=== PATIENT | male | born 1945 ===

== ENCOUNTER 2016-11-10 06:40 | Emergency (ER) | payer MEDICAID ==
[2016-11-10 06:44] VITALS: BMI 30.8
[2016-11-10 07:40] VITALS: RESP 16; TEMP 97.8; O2SAT 96
--- NOTE | 2016-11-10 07:42 | ED PDOC ---
Arrival/HPI - General Chief Complaint: Headache Time Seen by Provider: 11/10/16 07:33 Historian: Patient - History of Present Illness Narrative History of Present Illness (Text): 11/10/16 07:37 71 year old male with a past medical history that includes hypertension and diabetes presents to the emergency department complaining of headache with elevated blood pressure last night. 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 Patient states he felt dizzy at home last night so he checked his blood pressure with a machine at home. Patient reports it was 193/96 at home. He reports that the dizziness was not associated with chest pain or shortness of breath. Currently patient states he is still experiencing severe headache. No chest pain, shortness of breath, weakness, abdominal pain, or leg pain. Patient reports he does not have a manager flight and has never had a cardiac workup Time/Duration: 24 hours Symptom Onset: Sudden Symptom Course: Unchanged Modifying Factors (Text): None Associated Symptoms (Text): None Past Medical History - Provider Review Nursing Documentation Reviewed: Yes - Infectious Disease Hx of Infectious Diseases: None - Tetanus Immunization Tetanus Immunization: Unknown - Cardiac Hx Hypertension: Yes - Psychiatric Hx Psychophysiologic Disorder: No Hx Anxiety: No Hx Bipolar Disorder: No Hx Depression: No Hx Emotional Abuse: No Hx Hallucinations: No Hx Panic Disorder: No Hx Post Traumatic Stress Disorder: No Hx Psychosis: No Hx Physical Abuse: No Hx Schizophrenia: No Hx Sexual Abuse: No Hx Substance Use: No - Past Surgical History Past Surgical History: No Previous - Surgical History Other/Comment: prostate and eye surgery - Anesthesia Hx Anesthesia: No Hx Anesthesia Reactions: No Hx Malignant Hyperthermia: No - Suicidal Assessment Feels Threatened In Home Enviroment: No Family/Social History - Physician Review Nursing Documentation Reviewed: Yes Family/Social History: Unknown Family HX Smoking Status: Never Smoked Hx Alcohol Use: No Hx Substance Use: No Hx Substance Use Treatment: No Allergies/Home Meds Allergies/Adverse Reactions: Allergies No Known Allergies Allergy (Verified 12/13/14 14:26) Home Medications: Home Meds Medication Instructions Recorded Confirmed Aspirin [Ecotrin] 81 mg PO DAILY 06/10/16 06/10/16 Losartan/Hydrochlorothiazide 1 tab PO DAILY 06/10/16 06/10/16 [Losartan Potassium-Hydrochlorothiazide 12.5 M] Metformin HCl [Glucophage] 1,000 mg PO AC 06/10/16 06/10/16 Review of Systems - Review of Systems Constitutional: absent: Fatigue, Fevers Eyes: absent: Vision Changes, Photophobia, Eye Pain ENT: absent: Hearing Changes Respiratory: absent: SOB, Cough, Sputum, Wheezing Cardiovascular: absent: Chest Pain, Palpitations, Edema, Calf Pain, LOOMIS, Orthopnea, Syncope Gastrointestinal: absent: Abdominal Pain, Nausea, Vomiting Genitourinary Male: absent: Dysuria Musculoskeletal: absent: Back Pain Skin: absent: Rash Neurological: Headache, Dizziness Endocrine: absent: Diaphoresis Hemo/Lymphatic: absent: Easy Bleeding Psychiatric: absent: Depression Physical Exam Vital Signs Reviewed: Yes Vital Signs Temp Pulse Resp BP Pulse Ox 11/10/16 08:57 67 16 110/70 96 11/10/16 07:40 97.8 F 66 16 114/76 96 11/10/16 06:44 98.4 F 76 18 148/82 99 Temperature: Afebrile Blood Pressure: Normal Pulse: Regular Respiratory Rate: Normal Appearance: Positive for: Well-Appearing, Non-Toxic, Comfortable Pain Distress: None Mental Status: Positive for: Alert and Oriented X 3 - Systems Exam Head: Present: Atraumatic, Normocephalic Pupils: Present: PERRL Extroacular Muscles: Present: EOMI Conjunctiva: Present: Normal Mouth: Present: Moist Mucous Membranes Neck: Present: Normal Range of Motion Respiratory/Chest: Present: Clear to Auscultation, Good Air Exchange. No: Respiratory Distress, Accessory Muscle Use Cardiovascular: Present: Regular Rate and Rhythm, Normal S1, S2. No: Murmurs Abdomen: Present: Normal Bowel Sounds. No: Tenderness, Distention, Peritoneal Signs Back: Present: Normal Inspection Upper Extremity: Present: Normal Inspection. No: Cyanosis, Edema Lower Extremity: Present: Normal Inspection. No: Edema Neurological: Present: GCS=15, CN II-XII Intact, Speech Normal, Motor Func Grossly Intact, Normal Sensory Function, Gait Normal Skin: Present: Warm, Dry, Normal Color. No: Rashes Psychiatric: Present: Alert, Oriented x 3, Normal Insight, Normal Concentration Medical Decision Making ED Course and Treatment: Impression: Patient presenting with complaint of dizziness that was associated with hypertension last night. This has resolved but patient reports persistent headache. Presentation is concerning for hypertensive emergency vs acs (? atypical due to DM). Will get labs, cxray, ekg, give aspirin and reevaluate but due to lack of cardiac workup, with risk factors, will likely need observation for r/o acs. Prior Visits: Notes and results from previous visits were reviewed. Progress Notes: 11/10/16 08:10 EKG shows NSR at 74bpm with normal intervals and no ST changes, interpreted by me. 11/10/16 09:23 Labs reviewed. Trop x1 negative. Cxray negative. Spoke to patient and with use of skidder runner. Patient reports headache is resolved. Recommended admission. Reporting that he wants to go. Understands AMA and that he is at risk for heart attack and and reports will go to PMD today. Leaving Against Medical Advice (AMA): The patient is choosing to leave against medical advice. I have personally explained to the patient that choosing to do so may result in permanent bodily harm or . I have discussed at great length that without further evaluation and monitoring there may be unforeseen circumstances and/or deterioration causing permanent bodily harm or as a result of their choice. The patient is alert, oriented, and shows the mental capacity to make clear decisions regarding the patients health care at this time. The patient continues to wish to leave against medical advice. The patient has been advised that they should return to the emergency room immediately if they change their mind at any time, or if their condition begins to change or worsen in any way. - Lab Interpretations Lab Results: 11/10/16 07:50 11/10/16 07:50 Lab Results 11/10/16 08:10: Urine Color Yellow, Urine Appearance Clear, Urine pH 8.0, Ur Specific [place] 1.015, Urine Protein Negative, Urine Glucose (UA) Negative, Urine Ketones Negative, Urine Blood Trace-lysed H, Urine Nitrate Negative, Urine Bilirubin Negative, Urine Urobilinogen 0.2, Ur Leukocyte Esterase Negative , Urine RBC 0 - 2, Urine WBC 0 - 2 11/10/16 07:50: WBC 6.1, RBC 4.97, Hgb 15.7, Hct 45.6, MCV 91.8, MCH 31.6, MCHC 34.4, RDW 13.3, Plt Count 287, MPV 9.6, Gran % 63.4, Lymph % (Auto) 28.1, [place] % (Auto) 6.9 H, Eos % (Auto) 1.3 L, Baso % (Auto) 0.3, Gran # 3.84, Lymph # 1.7 , [place] # 0.4, Eos # 0.1, Baso # 0.02, Sodium 140, Potassium 4.3, Chloride 98, Carbon Dioxide 29, Anion Gap 17, BUN 12, Creatinine 0.8, Est GFR ( Amer) > 60, Est GFR (Non-Af Amer) > 60, Random Glucose 104, Calcium 9.8, Total Bilirubin 0.7, AST 44, ALT 42, Alkaline Phosphatase 71, Total Creatine Kinase 464 H, CK-MB (CK-2) 3.1, CK-MB (CK-2) % Cancelled, Troponin I < 0.01, Total Protein 8.5 H, Albumin 4.5, Globulin 4.0, Albumin/Globulin Ratio 1.1 - RAD Interpretation Radiology Orders: 11/10/16 07:34 CHEST PORTABLE [RAD] Stat - EKG Interpretation Interpreted by ED Physician: Yes Type: 12 lead EKG - Medication Orders Current Medication Orders: Discontinued Medications Acetaminophen (Tylenol 325mg Tab) 975 mg PO STAT STA Stop: 11/10/16 07:35 Last Admin: 11/10/16 07:57 Dose: 975 MG Aspirin (Aspirin Chewable) 324 mg PO STAT STA Stop: 11/10/16 07:35 Last Admin: 11/10/16 07:57 Dose: 324 MG Metoclopramide HCl (Reglan) 10 mg IVP STAT STA Stop: 11/10/16 07:35 Last Admin: 11/10/16 07:57 Dose: 10 MG IVP Administration Document 11/10/16 07:57 YASMANI (Rec: 11/10/16 07:57 YASMANI [facility] [place]-[id number]) Charges for Administration # of IVP Administrations 1 - Scribe Statement The provider has reviewed the documentation as recorded by the Adiel Cortez Provider Scribe Attestation: All medical record entries made by the Meenakshiibpaola were at my direction and personally dictated by me. I have reviewed the chart and agree that the record accurately reflects my personal performance of the history, physical exam, medical decision making, and the department course for this patient. I have also personally directed, reviewed, and agree with the discharge instructions and disposition. Disposition/Present on Arrival - Present on Arrival Any Indicators Present on Arrival: No History of DVT/PE: No History of Uncontrolled Diabetes: No Urinary Catheter: No History of Decub. Ulcer: No History Surgical Site Infection Following: None - Disposition Have Diagnosis and Disposition been Completed?: Yes Diagnosis: Hypertension, Dizziness, Headache Disposition: AGAINST MEDICAL ADVICE Disposition Time: 08:45 Condition: UNKNOWN Print Language: MONTSERRATIAN Additional Instructions: Your symptoms are concerning for undiagnosed cardiac condition. You are signing out against medical advice. The risks of signing out AMA have been explained to you and include but are not limited to: sudden cardiac . Return to ED if you will agree to further workup. Referrals: Leda Ness MD [Primary Care Provider] - Follow up with primary
[2016-11-10 08:01] LABS: ADD MANUAL DIFF? NO
[2016-11-10 08:14] LABS: BASO # 0.02 K/mm3 (0.0-2.0); BASO % 0.3 % (0.0-3.0); EOS # 0.1 (0.0-0.7); EOS % 1.3 % (1.5-5.0); GRAN # 3.84 (1.4-6.5); GRAN % 63.4 % (50.0-68.0); HEMATOCRIT 45.6 % (42.0-52.0); LYMPH # 1.7 (1.2-3.4); LYMPH % 28.1 % (22.0-35.0); MEAN CELL VOLUME 91.8 fL (80.0-105.0); MEAN CORPUSCULAR HEMOGLOBIN 31.6 pg (25.0-35.0); MEAN CORPUSCULAR HGB CONC 34.4 g/dl (31.0-37.0); MEAN PLATELET VOLUME 9.6 fl (7.0-11.0); MONO # 0.4 (0.1-0.6); MONO % 6.9 % (1.0-6.0); PLATELET COUNT 287 10^3/uL (120.0-450.0); RED CELL DISTRIBUTION WIDTH 13.3 % (11.5-14.5); WHITE BLOOD COUNT 6.1 10^3/ul (4.5-11.0)
[2016-11-10 08:17] LABS: URINE BILIRUBIN NEGATIVE (NEGATIVE); URINE BLOOD TRACE-LYSED (NEGATIVE); URINE GLUCOSE (UA) NEGATIVE (NEGATIVE); URINE KETONE NEGATIVE (NEGATIVE); URINE LEUKOCYTE ESTERASE NEGATIVE Leu/uL (NEGATIVE); URINE PROTEIN NEGATIVE mg/dL (<30 mg/dL); URINE UROBILINOGEN 0.2 E.U./dL (<1 E.U./dL)
[2016-11-10 08:20] LABS: ALB/GLOB RATIO 1.1 (1.1-1.8); ALKALINE PHOSPHATASE 71 U/L (38-133); ALT/SGPT 42 U/L (7-56); AST/SGOT 44 U/L (15-59); BILIRUBIN,TOTAL 0.7 mg/dL (0.2-1.3); BLOOD UREA NITROGEN 12 mg/dL (7-21); CALCIUM 9.8 mg/dL (8.4-10.5); CARBON DIOXIDE 29 mmol/L (21-33); CHLORIDE 98 mmol/L (98-107); GFR AFRICAN-AMERICAN > 60; GLUCOSE,RANDOM 104 mg/dL (70-110); POTASSIUM 4.3 mmol/L (3.6-5.0); SODIUM 140 mmol/L (132-148); TOTAL PROTEIN 8.5 g/dL (5.8-8.3)
[2016-11-10 08:22] LABS: URINE APPEARANCE CLEAR (CLEAR); URINE COLOR YELLOW (YELLOW)
[2016-11-10 08:32] LABS: TROPONIN I < 0.01 ng/mL
[2016-11-10 08:34] LABS: URINE RBC 0 - 2 /hpf (0-2); URINE WBC 0 - 2 /hpf (0-6)
[2016-11-10 08:58] VITALS: BP 110/70; PULSE 67
--- NOTE | 2016-11-10 09:15 | RAD ---
HISTORY: dizziness, htn COMPARISON: No prior. FINDINGS: LUNGS: No active pulmonary disease. PLEURA: No significant pleural effusion identified, no pneumothorax apparent. CARDIOVASCULAR: Normal. OSSEOUS STRUCTURES: No significant abnormalities. VISUALIZED UPPER ABDOMEN: Normal. OTHER FINDINGS: None. IMPRESSION: No active disease.
--- NOTE | 2016-11-10 15:39 | CARD ---
APPROVED REPORT EKG Measurement Heart [id number] <Conclusion> Normal sinus rhythm Normal ECG
== END 2016-11-10 09:36 | disposition left against medical advice (07) ==
LOC: ED 06:40
DX: I10 Essential (primary) hypertension (principal); R42 Dizziness and giddiness; R51 Headache; E11.9 Type 2 diabetes mellitus without complications
CPT/HCPCS: 71010; 80053; 81001; 82550; 82553; 84484; 85025; 93005; 96374; 99285; J2765

== ENCOUNTER 2017-10-12 02:01 | Inpatient (IN) | payer MEDICAID ==
[2017-10-12 02:11] VITALS: BMI 23.4
--- NOTE | 2017-10-12 02:39 | ED PDOC ---
Arrival/HPI - General Chief Complaint: Male Genitourinary Time Seen by Provider: 10/12/17 02:04 Historian: Patient, Spouse - History of Present Illness Narrative History of Present Illness (Text): 10/12/17 02:36 Omari Li is a 72 year old male, whose past medical history includes prostate cancer, currently undergoing radiation, who presents to the Emergency department complaining of urinary retention. Patient states he has been unable to void his urine since yesterday evening. Patient urinated once in the ER, but notes he was unable to fully void. Patient denies any fever, chills, nausea, vomiting, diarrhea, back pain, neck pain, headache, dizziness, or any other complaints. Urologist: Dr. Richard Mary Symptom Onset: Gradual Symptom Course: Unchanged Activities at Onset: Light Context: Home Past Medical History - Provider Review Nursing Documentation Reviewed: Yes - Infectious Disease Hx of Infectious Diseases: None - Tetanus Immunization Tetanus Immunization: Unknown - Cardiac Hx Cardiac Disorders: Yes Hx Hypertension: Yes - Pulmonary Hx Respiratory Disorders: No - Neurological Hx Neurological Disorder: No - HEENT Hx HEENT Disorder: No - Renal Hx Renal Disorder: No - Endocrine/Metabolic Hx Endocrine Disorders: Yes Hx Hypothyroidism: Yes - Hematological/Oncological Hx Blood Disorders: No - Integumentary Hx Dermatological Disorder: No - Musculoskeletal/Rheumatological Hx Musculoskeletal Disorders: No - Gastrointestinal Hx Gastrointestinal Disorders: No - Genitourinary/Gynecological Hx Genitourinary Disorders: Yes Hx Prostate Problems: Yes - Psychiatric Hx Psychophysiologic Disorder: No Hx Anxiety: No Hx Bipolar Disorder: No Hx Depression: No Hx Emotional Abuse: No Hx Hallucinations: No Hx Panic Disorder: No Hx Post Traumatic Stress Disorder: No Hx Psychosis: No Hx Physical Abuse: No Hx Schizophrenia: No Hx Sexual Abuse: No Hx Substance Use: No - Past Surgical History Past Surgical History: No Previous - Surgical History Other/Comment: prostate and eye surgery - Anesthesia Hx Anesthesia: No Hx Anesthesia Reactions: No Hx Malignant Hyperthermia: No - Suicidal Assessment Feels Threatened In Home Enviroment: No Family/Social History - Physician Review Nursing Documentation Reviewed: Yes Family/Social History: Unknown Family HX Smoking Status: Never Smoked Hx Alcohol Use: No Hx Substance Use: No Hx Substance Use Treatment: No Allergies/Home Meds Allergies/Adverse Reactions: Allergies No Known Allergies Allergy (Verified 10/12/17 02:21) Home Medications: Home Meds Medication Instructions Recorded Confirmed Aspirin [Ecotrin] 81 mg PO DAILY 06/10/16 10/12/17 Losartan/Hydrochlorothiazide 1 tab PO DAILY 06/10/16 10/12/17 [Losartan Potassium-Hydrochlorothiazide 12.5 M] Metformin HCl [Glucophage] 1,000 mg PO AC 06/10/16 10/12/17 Bicalutamide [Casodex] 50 mg PO DAILY 10/12/17 10/12/17 Levothyroxine [Synthroid] 50 mcg PO DAILY 10/12/17 10/12/17 Tamsulosin HCl [Flomax] 0.4 mg PO DAILY 10/12/17 10/12/17 Review of Systems - Physician Review All systems were reviewed & negative as marked: Yes - Review of Systems Constitutional: Normal. absent: Fevers Eyes: Normal ENT: Normal Respiratory: Normal. absent: SOB, Cough Cardiovascular: Normal. absent: Chest Pain Gastrointestinal: Normal. absent: Abdominal Pain, Diarrhea, Nausea, Vomiting Genitourinary Male: Urinary Output Changes (+unable to void). absent: Dysuria, Frequency, Hematuria Musculoskeletal: Normal Skin: Normal Neurological: Normal Endocrine: Normal Hemo/Lymphatic: Normal Psychiatric: Normal Physical Exam Vital Signs Reviewed: Yes Vital Signs Temp Pulse Resp BP Pulse Ox 10/12/17 02:10 97.7 F 86 17 133/85 100 Temperature: Afebrile Blood Pressure: Normal Pulse: Regular Respiratory Rate: Normal Appearance: Positive for: Well-Appearing, Non-Toxic, Comfortable Pain Distress: None Mental Status: Positive for: Alert and Oriented X 3 - Systems Exam Head: Present: Atraumatic, Normocephalic Pupils: Present: PERRL Extroacular Muscles: Present: EOMI Conjunctiva: Present: Normal Mouth: Present: Moist Mucous Membranes Neck: Present: Normal Range of Motion Respiratory/Chest: Present: Clear to Auscultation, Good Air Exchange. No: Respiratory Distress, Accessory Muscle Use Cardiovascular: Present: Regular Rate and Rhythm, Normal S1, S2. No: Murmurs Abdomen: Present: Distention (Mild suprapubic distention), Normal Bowel Sounds. No: Tenderness, Peritoneal Signs Back: Present: Normal Inspection Upper Extremity: Present: Normal Inspection. No: Cyanosis, Edema Lower Extremity: Present: Normal Inspection. No: Edema Neurological: Present: GCS=15, CN II-XII Intact, Speech Normal Skin: Present: Warm, Dry, Normal Color. No: Rashes Psychiatric: Present: Alert, Oriented x 3, Normal Insight, Normal Concentration Medical Decision Making ED Course and Treatment: 10/12/17 02:36 Impression: 72 year old male complaining of urinary retention since yesterday. Differential Diagnosis included but are not limited to: urinary retention Plan: -- Goff catheter placement -- UA -- Reassess and disposition Progress Notes: Pt urinated on arrival to hospital. Goff catheter placed by RN, no residual urine. 10/12/17 03:[address] Richard Mary, who is aware and agrees with plan. States Goff catheter can be removed, place pt on antibiotics, and pt can f/u with him outpt. 10/12/17 03:43 Pt bleeding from meatus after Goff catheter removal. Will keep for observation. Case discussed with Dr. Mary, who is aware and agrees with plan. Pt will go to [facility] for urinary retention, bleeding from urethra under the hospitalist service. 10/12/17 03:53 Case discussed with medical officer psychiatry protection consultant, who is aware and agrees with plan. Case discussed with Dr. Wong, who is aware and agrees with plan. Accepts pt in to hospitalist service. - Lab Interpretations Lab Results: Lab Results 10/12/17 02:45: Urine Color Yellow, Urine Appearance Sl cloudy, Urine pH 6.5, Ur Specific [place] 1.010, Urine Protein Trace H, Urine Glucose (UA) Negative, Urine Ketones Negative, Urine Blood Negative, Urine Nitrate Negative, Urine Bilirubin Negative, Urine Urobilinogen 0.2, Ur Leukocyte Esterase Moderate H, Urine RBC 0 - 2, Urine WBC 15 - 20, Ur Epithelial Cells 0 - 2, Urine Bacteria Mod I have reviewed the lab results: Yes - Medication Orders Current Medication Orders: Amlodipine Besylate (Norvasc) 5 mg PO DAILY CLAUDIO Aspirin (Ecotrin) 81 mg PO DAILY CLAUDIO Bicalutamide (Casodex) 50 mg PO DAILY CLAUDIO Hydrochlorothiazide (Microzide) 12.5 mg PO DAILY CLAUDIO Ceftriaxone Sodium (Rocephin 1 Gram Ivpb) 1 gm in 100 mls @ 200 mls/hr IV ONCE STA PRN Reason: Protocol Stop: 10/12/17 04:17 Last Admin: 10/12/17 04:00 Dose: 200 mls/hr eMAR Start Stop Document 10/12/17 04:00 RD (Rec: 10/12/17 04:00 RD [id number]) Intravenous Solution Start Date 10/12/17 Start Time 04:00 End Date 10/12/17 End time 04:30 Total Infusion Time 30 Levothyroxine Sodium (Synthroid) 50 mcg PO DAILY CLAUDIO Losartan Potassium (Cozaar) 50 mg PO DAILY CLAUDIO Pantoprazole Sodium (Protonix Ec Tab) 40 mg PO 0600 CLAUDIO Tamsulosin HCl (Flomax) 0.4 mg PO DAILY CLAUDIO - Scribe Statement The provider has reviewed the documentation as recorded by the Meenakshiibpaola De Los Santos All medical record entries made by the Meenakshiibpaola were at my direction and personally dictated by me. I have reviewed the chart and agree that the record accurately reflects my personal performance of the history, physical exam, medical decision making, and the department course for this patient. I have also personally directed, reviewed, and agree with the discharge instructions and disposition. Disposition/Present on Arrival - Present on Arrival Any Indicators Present on Arrival: No History of DVT/PE: No History of Uncontrolled Diabetes: No Urinary Catheter: No History of Decub. Ulcer: No History Surgical Site Infection Following: None - Disposition Have Diagnosis and Disposition been Completed?: Yes Diagnosis: Urinary retention, UTI (urinary tract infection), Urethral bleeding Disposition: HOSPITALIZED Disposition Time: 04:04 Patient Plan: Observation Condition: STABLE Forms: [employer] (Faroese)
[2017-10-12 03:03] LABS: PH,URINE 6.5 (4.7-8.0); URINE BILIRUBIN NEGATIVE (NEGATIVE); URINE BLOOD NEGATIVE (NEGATIVE); URINE GLUCOSE (UA) NEGATIVE (NEGATIVE); URINE LEUKOCYTE ESTERASE MODERATE Leu/uL (NEGATIVE); URINE NITRATE NEGATIVE (NEGATIVE); URINE PROTEIN TRACE mg/dL (<30 mg/dL); URINE UROBILINOGEN 0.2 E.U./dL (<1 E.U./dL)
[2017-10-12 03:04] LABS: URINE APPEARANCE SL CLOUDY (CLEAR); URINE COLOR YELLOW (YELLOW)
[2017-10-12 03:23] LABS: URINE BACTERIA MOD (NEG); URINE EPITHELIAL CELLS 0 - 2 /hpf (0-5); URINE RBC 0 - 2 /hpf (0-2); URINE WBC 15 - 20 /hpf (0-6)
[2017-10-12] MEDS ORDERED: cefTRIAXone 1 gm 1 GM/100 ML BAG IV STA (03:48)
--- NOTE | 2017-10-12 03:57 | CP.PCM.HP ---
<Christ Matthews - Last Filed: 10/12/17 05:51> History of Present Illness - History of Present Illness History of Present Illness: Patient is a 72 year old Peruvian-Speaking male with a PMHx of prostate CA ( currently undergoing radiation therapy), Hypothyroidism, Pre-diabetes, and hypertension who presents due to Urinary retention that started yesterday evening associated with some suprapubic tenderness. Patient was able to urinate slightly without blood or dysuria in the ED. His suprapubic tenderness resolved after urinating He did complain of pruritis during urination in the ED. Dickinson catheter was placed in the ED without any urinary return. Upon removal of the dickinson catether patient began to bleed from his urinary meatus. Patient denies any dysuria or hematuria before his urinary retention started. He denies any fevers, chills, SOB, Chest pain, abdominal pain, nausea, vomiting , diarrhea, constipation, or generalized weakness. ROS: As stated above. PMHx: Prostate CA, Hypothyroidism, pre-diabetes (On Metformin?), and HTN PSHx: Prostate surgery (2002), Hernia Repair Allergies: NKDA Social: Denies tobacco, alcohol, or illicit drug use FamHx: Non-Contributory Meds: Reviewed PMD: Dr. Jane Bynum Heme/Onc: Dr. Sigifredo Reese Urologist: Dr. Richard Mary Present on Admission - Present on Admission Any Indicators Present on Admission: No Review of Systems - Review of Systems Review of Systems: As per HPI Past Patient History - Infectious Disease Hx of Infectious Diseases: None - Tetanus Immunizations Tetanus Immunization: Unknown - Past Social History Smoking Status: Never Smoked - CARDIAC Hx Cardiac Disorders: Yes Hx Hypertension: Yes - PULMONARY Hx Respiratory Disorders: No - NEUROLOGICAL Hx Neurological Disorder: No - HEENT Hx HEENT Problems: No - RENAL Hx Chronic Kidney Disease: No - ENDOCRINE/METABOLIC Hx Endocrine Disorders: Yes Hx Hypothyroidism: Yes - HEMATOLOGICAL/ONCOLOGICAL Hx Blood Disorders: No - INTEGUMENTARY Hx Dermatological Problems: No - MUSCULOSKELETAL/RHEUMATOLOGICAL Hx Musculoskeletal Disorders: No - GASTROINTESTINAL Hx Gastrointestinal Disorders: No - GENITOURINARY/GYNECOLOGICAL Hx Genitourinary Disorders: Yes Hx Prostate Problems: Yes - PSYCHIATRIC Hx Psychophysiologic Disorder: No Hx Anxiety: No Hx Bipolar Disorder: No Hx Depression: No Hx Emotional Abuse: No Hx Hallucinations: No Hx Panic Symptoms: No Hx Post Traumatic Stress Disorder: No Hx Psychosis: No Hx Physical Abuse: No Hx Schizophrenia: No Hx Sexual Abuse: No Hx Substance Use: No - SURGICAL HISTORY Other/Comment: prostate and eye surgery - ANESTHESIA Hx Anesthesia: No Hx Anesthesia Reactions: No Hx Malignant Hyperthermia: No Meds Allergies/Adverse Reactions: Allergies Allergy/AdvReac Type Severity Reaction Status Date / Time No Known Allergies Allergy Verified 10/12/17 02:21 Physical Exam - Constitutional Appears: Well, Non-toxic, No Acute Distress - Head Exam Head Exam: ATRAUMATIC, NORMAL INSPECTION, NORMOCEPHALIC - Eye Exam Eye Exam: EOMI, Normal appearance - ENT Exam ENT Exam: Mucous Membranes Moist - Respiratory Exam Respiratory Exam: Clear to Auscultation Bilateral. absent: Rales, Rhonchi, Wheezes - Cardiovascular Exam Cardiovascular Exam: RRR, +S1, +S2 - GI/Abdominal Exam GI & Abdominal Exam: Normal Bowel Sounds, Soft. absent: Organomegaly, Tenderness - Exam Exam: Circumcision. absent: Scrotal Swelling External exam: absent: Ecchymosis, Erythema, Lacerations, Lesions Bimanual exam: NORMAL BIMANUAL EXAM Additional comments: Actively Bleeding from Urinary Meatus - Extremities Exam Extremities exam: Positive for: normal capillary refill. Negative for: pedal edema - Neurological Exam Neurological exam: Alert, Oriented x3 - Psychiatric Exam Psychiatric exam: Normal Affect, Normal Mood - Skin Skin Exam: Dry, Intact, Normal Color, Warm Results - Vital Signs Recent Vital Signs: Last Vital Signs Temp 97.7 F 10/12/17 02:10 Pulse 86 10/12/17 02:10 Resp 17 10/12/17 02:10 BP 133/85 10/12/17 02:10 Pulse Ox 100 10/12/17 02:10 - Labs Result Diagrams: 10/12/17 03:45 10/12/17 03:45 Labs: Laboratory Results - last 24 hr 10/12/17 02:45 Urine Color Yellow Urine Appearance Sl cloudy Urine pH 6.5 Ur Specific [place] 1.010 Urine Protein Trace H Urine Glucose (UA) Negative Urine Ketones Negative Urine Blood Negative Urine Nitrate Negative Urine Bilirubin Negative Urine Urobilinogen 0.2 Ur Leukocyte Esterase Moderate H Urine RBC 0 - 2 Urine WBC 15 - 20 Ur Epithelial Cells 0 - 2 Urine Bacteria Mod Assessment & Plan - Assessment and Plan (Free Text) Assessment: Patient is a 72 year old Peruvian-Speaking male with a PMHx of prostate CA ( currently undergoing radiation therapy), Hypothyroidism, Pre-diabetes, and hypertension who presents due to Urinary retention that started yesterday evening associated with some suprapubic tenderness. Dickinson Catheter was inserted in ED and patient began to bleed post removal of catheter. Plan: Urinary Retention with Bleeding post removal of dickinson catheter. UA: Trace Protein, Moderate Leuk Es. Monitor H/H. PT/PTT Urology Consult (Dr. Richard Mary) Hold Flomax. NPO incase any plan for procedure Bladder Scan on floor showed 400cc of Urine. Post Void Volume was 250cc's. UTI UA: Moderate Leuk Es Urine Culture Cont. Rocephin 1 Gram IV daily. Started in ED Hx of Prostate CA Patient is scheduled to be at radiation therapy today at 10:00 Continue Bicalutamide 50mg PO Daily Hx of HTN Cont. Home Medications Losartan 50/HCTZ 12.5 Daily Norvasc 5 daily Hx of Hypothyroidism Levothyroxine 50mcg PO Daily Prediabetes vs Diabetes ISS HgBA1c - F/U Proph SCD/Protonix Patient seen and discussed with Attending (Dr. Gifty Wong) Christ Matthews, PGY1 <Apurva Wong - Last Filed: 10/12/17 06:12> Results - Vital Signs Recent Vital Signs: Last Vital Signs Temp 97.7 F 10/12/17 02:10 Pulse 92 H 10/12/17 04:16 Resp 18 10/12/17 04:16 BP 122/76 10/12/17 04:16 Pulse Ox 100 10/12/17 04:16 - Labs Result Diagrams: 10/12/17 03:45 10/12/17 03:45 Attending/Attestation - Attestation I have personally seen and examined this patient.: Yes I have fully participated in the care of the patient.: Yes I have reviewed all pertinent clinical information: Yes Notes (Text): 10/12/17 06:10 Patient was seen when he was in bed # 2 in the ER. Agree with history , physical examination, assessment and plan. Patient had urethral bleeding -Iatrogenic hematuria.
[2017-10-12 04:12] LABS: ALB/GLOB RATIO 1.3 (1.1-1.8); ALBUMIN 4.5 g/dL (3.0-4.8); ALT/SGPT 38 U/L (7-56); AST/SGOT 34 U/L (17-59); BLOOD UREA NITROGEN 10 mg/dL (7-21); CALCIUM 10.1 mg/dL (8.4-10.5); GFR AFRICAN-AMERICAN > 60; GFR NON-AFRICAN AMERICAN > 60
[2017-10-12 04:13] LABS: HEMOGLOBIN 13.1 g/dL (14.0-18.0); MEAN CELL VOLUME 93.5 fl (80.0-105.0); MEAN CORPUSCULAR HEMOGLOBIN 31.6 pg (25.0-35.0); MEAN CORPUSCULAR HGB CONC 33.8 g/dl (31.0-37.0); MEAN PLATELET VOLUME 9.5 fl (7.0-11.0); RBC 4.15 10^6/uL (3.5-6.1); RED CELL DISTRIBUTION WIDTH 12.9 % (11.5-14.5); WHITE BLOOD COUNT 10.2 10^3/ul (4.5-11.0)
[2017-10-12 06:30] LABS: BASO # 0.01 K/mm3 (0.0-2.0); BASO % 0.1 % (0.0-3.0); EOS # 0.1 (0.0-0.7); EOS % 0.8 % (1.5-5.0); GRAN # 8.09 (1.4-6.5); GRAN % 86.8 % (50.0-68.0); HEMOGLOBIN 12.1 g/dL (14.0-18.0); LYMPH # 0.8 (1.2-3.4); LYMPH % 8.9 % (22.0-35.0); MEAN CELL VOLUME 93.6 fl (80.0-105.0); MEAN CORPUSCULAR HEMOGLOBIN 31.2 pg (25.0-35.0); MEAN CORPUSCULAR HGB CONC 33.3 g/dl (31.0-37.0); MEAN PLATELET VOLUME 9.7 fl (7.0-11.0); MONO # 0.3 (0.1-0.6); MONO % 3.4 % (1.0-6.0); RBC 3.88 10^6/uL (3.5-6.1); RED CELL DISTRIBUTION WIDTH 12.8 % (11.5-14.5); WHITE BLOOD COUNT 9.3 10^3/ul (4.5-11.0)
[2017-10-12 06:37] LABS: INR 1.1 (0.93-1.08); PROTHROMBIN TIME 12.7 SECONDS (9.4-12.5)
[2017-10-12] MEDS: Pantoprazole 40 mg EC Tab PO SCH (06:42)
[2017-10-12 07:22] LABS: ALB/GLOB RATIO 1.2 (1.1-1.8); ALBUMIN 4.1 g/dL (3.0-4.8); ALT/SGPT 30 U/L (7-56); AST/SGOT 31 U/L (17-59); BLOOD UREA NITROGEN 10 mg/dL (7-21); CALCIUM 9.9 mg/dL (8.4-10.5); GFR AFRICAN-AMERICAN > 60; GFR NON-AFRICAN AMERICAN > 60
[2017-10-12] MEDS: Insulin Reg-MEDIUM-Coverage SC SCH ×4 (08:12→22:57)
[2017-10-12] MEDS: Levothyroxine 50 MCG TAB PO SCH (11:10)
[2017-10-12] MEDS ORDERED: Lidocaine 2% Jelly (Uro-Jet) ONE (13:50)
[2017-10-12] MEDS ORDERED: Lidocaine 1% Inj (20ml) ONE (14:07)
[2017-10-12] MEDS ORDERED: Propofol 10 mg/ml Inj (20 ML) ONE (14:07)
[2017-10-12] MEDS ORDERED: Etomidate 20 mg/10ml Inj IV ONE (14:07)
[2017-10-12] MEDS ORDERED: Iohexol 240 (50 ml) ONE (14:51)
--- NOTE | 2017-10-12 15:18 | PCM.URO ---
Urology Progress Note - Objective Lab Studies: Reviewed (see fully dictated notes dx:retention, ca of prostate , urethral stricture , plans:spt to sd) Lab Results Last 24 Hours: Laboratory Results - last 24 hr 10/12/17 10/12/17 10/12/17 05:45 05:45 05:45 WBC 9.3 RBC 3.88 Hgb 12.1 L Hct 36.3 L MCV 93.6 MCH 31.2 MCHC 33.3 RDW 12.8 Plt Count 254 MPV 9.7 Gran % 86.8 H Lymph % (Auto) 8.9 L [place] % (Auto) 3.4 Eos % (Auto) 0.8 L Baso % (Auto) 0.1 Gran # 8.09 H Lymph # (Auto) 0.8 L [place] # (Auto) 0.3 Eos # (Auto) 0.1 Baso # (Auto) 0.01 PT 12.7 H INR 1.10 H APTT 31.0 Sodium 139 Potassium 4.0 Chloride 102 Carbon Dioxide 26 Anion Gap 15 BUN 10 Creatinine 0.8 Est GFR ( Amer) > 60 Est GFR (Non-Af Amer) > 60 POC Glucose (mg/dL) Random Glucose 146 H Calcium 9.9 Total Bilirubin 0.2 AST 31 ALT 30 Alkaline Phosphatase 72 Total Protein 7.4 Albumin 4.1 Globulin 3.3 Albumin/Globulin Ratio 1.2 10/12/17 10/12/17 07:17 11:37 WBC RBC Hgb Hct MCV MCH MCHC RDW Plt Count MPV Gran % Lymph % (Auto) [place] % (Auto) Eos % (Auto) Baso % (Auto) Gran # Lymph # (Auto) [place] # (Auto) Eos # (Auto) Baso # (Auto) PT INR APTT Sodium Potassium Chloride Carbon Dioxide Anion Gap BUN Creatinine Est GFR ( Amer) Est GFR (Non-Af Amer) POC Glucose (mg/dL) 104 104 Random Glucose Calcium Total Bilirubin AST ALT Alkaline Phosphatase Total Protein Albumin Globulin Albumin/Globulin Ratio Intake & Output: Intake & Output 10/11/17 10/12/17 10/12/17 18:59 06:59 18:59 Intake Total 0 Output Total 525 Balance -525 Intake: Oral 0 Output: Urine 525 Urine, Voided 525 Other: Voiding Method Toilet # Bowel Movements 0 Vital Signs: Vital Signs - 24 hr 10/12/17 10/12/17 10/12/17 04:16 07:39 08:10 Temperature 98.1 F 98.1 F Pulse Rate 92 H 76 76 Respiratory 18 18 18 Rate Blood Pressure 122/76 124/78 124/78 O2 Sat by Pulse 100 96 Oximetry 10/12/17 14:00 Temperature 99 F Pulse Rate 80 Respiratory 18 Rate Blood Pressure 122/77 O2 Sat by Pulse 98 Oximetry
[2017-10-12] MEDS ORDERED: Lactated Ringer's 1,000 ML IV SCH (15:30)
[2017-10-12] MEDS: HYDROmorphone 0.5 mg/0.5 ml ISec IVP PRN ×4 (16:05→17:10)
[2017-10-12] MEDS ORDERED: HYDROmorphone 0.5 mg/0.5 ml ISec ONE ×4 (16:05→17:11)
[2017-10-12] MEDS ORDERED: HYDROmorphone 0.5 mg/0.5 ml ISec IVP PRN (16:19)
--- NOTE | 2017-10-12 16:29 | RAD ---
HISTORY: Pre procedure COMPARISON: 02/22/2017 FINDINGS: LUNGS: No active pulmonary disease. PLEURA: No significant pleural effusion identified, no pneumothorax apparent. CARDIOVASCULAR: Normal. OSSEOUS STRUCTURES: No significant abnormalities. VISUALIZED UPPER ABDOMEN: Normal. OTHER FINDINGS: None. IMPRESSION: No active disease.
[2017-10-12] MEDS ORDERED: Oxycodone/Acetaminophen 5/325 mg Tab PO PRN (16:51)
--- NOTE | 2017-10-12 17:19 | RAD ---
PROCEDURE: Fluoroscopy up to 1 hour HISTORY: CYSTOGRAM COMPARISON: TECHNIQUE: Fluoroscopy was provided in the operating room. 26.7 seconds of fluoro time. Eight images were submitted FINDINGS: Study shows placement of a suprapubic catheter with a balloon tipped catheter in the bladder IMPRESSION: As above
[2017-10-12] MEDS ORDERED: Oxycodone/Acetaminophen 5/325 mg Tab ONE (18:03)
--- NOTE | 2017-10-12 18:27 | CARD ---
APPROVED REPORT EKG Measurement Heart [id number] <Conclusion> Normal sinus rhythm Minimal voltage criteria for LVH, may be normal variant Borderline ECG
[2017-10-12 20:44] VITALS: O2SAT 97
[2017-10-13] MEDS ORDERED: cefTRIAXone 1 gm 1 GM/100 ML BAG IVPB SCH (06:00)
[2017-10-13 06:27] LABS: BASO # 0.02 K/mm3 (0.0-2.0); BASO % 0.2 % (0.0-3.0); EOS % 0.4 % (1.5-5.0); GRAN # 6.8 (1.4-6.5); GRAN % 83.9 % (50.0-68.0); HEMOGLOBIN 11.1 g/dL (14.0-18.0); LYMPH # 0.6 (1.2-3.4); LYMPH % 7.9 % (22.0-35.0); MEAN CELL VOLUME 93.5 fl (80.0-105.0); MEAN CORPUSCULAR HEMOGLOBIN 31.2 pg (25.0-35.0); MEAN CORPUSCULAR HGB CONC 33.3 g/dl (31.0-37.0); MEAN PLATELET VOLUME 9.2 fl (7.0-11.0); MONO # 0.6 (0.1-0.6); MONO % 7.6 % (1.0-6.0); RBC 3.56 10^6/uL (3.5-6.1); RED CELL DISTRIBUTION WIDTH 12.8 % (11.5-14.5); WHITE BLOOD COUNT 8.1 10^3/ul (4.5-11.0)
[2017-10-13] MEDS: Pantoprazole 40 mg EC Tab PO SCH (06:33)
[2017-10-13 06:47] LABS: ALB/GLOB RATIO 1.2 (1.1-1.8); ALBUMIN 3.6 g/dL (3.0-4.8); ALT/SGPT 36 U/L (7-56); AST/SGOT 27 U/L (17-59); BLOOD UREA NITROGEN 12 mg/dL (7-21); CALCIUM 9.2 mg/dL (8.4-10.5); GFR AFRICAN-AMERICAN > 60; GFR NON-AFRICAN AMERICAN > 60
[2017-10-13] MEDS: Insulin Reg-MEDIUM-Coverage SC SCH ×2 (08:18→12:24)
[2017-10-13] MEDS: Levothyroxine 50 MCG TAB PO SCH (08:47)
--- NOTE | 2017-10-13 09:00 | PCM.URO ---
Urology Progress Note - Objective Lab Studies: Reviewed (spt to sd) Lab Results Last 24 Hours: Laboratory Results - last 24 hr 10/12/17 10/12/17 10/12/17 11:37 19:05 21:42 WBC RBC Hgb Hct MCV MCH MCHC RDW Plt Count MPV Gran % Lymph % (Auto) [place] % (Auto) Eos % (Auto) Baso % (Auto) Gran # Lymph # (Auto) [place] # (Auto) Eos # (Auto) Baso # (Auto) Sodium Potassium Chloride Carbon Dioxide Anion Gap BUN Creatinine Est GFR ( Amer) Est GFR (Non-Af Amer) POC Glucose (mg/dL) 104 102 111 H Random Glucose Calcium Total Bilirubin AST ALT Alkaline Phosphatase Total Protein Albumin Globulin Albumin/Globulin Ratio 10/13/17 10/13/17 10/13/17 05:30 05:30 07:55 WBC 8.1 RBC 3.56 Hgb 11.1 L Hct 33.3 L MCV 93.5 MCH 31.2 MCHC 33.3 RDW 12.8 Plt Count 211 MPV 9.2 Gran % 83.9 H Lymph % (Auto) 7.9 L [place] % (Auto) 7.6 H Eos % (Auto) 0.4 L Baso % (Auto) 0.2 Gran # 6.80 H Lymph # (Auto) 0.6 L [place] # (Auto) 0.6 Eos # (Auto) 0.0 Baso # (Auto) 0.02 Sodium 135 Potassium 3.7 Chloride 96 L Carbon Dioxide 28 Anion Gap 14 BUN 12 Creatinine 0.8 Est GFR ( Amer) > 60 Est GFR (Non-Af Amer) > 60 POC Glucose (mg/dL) 115 H Random Glucose 113 H Calcium 9.2 Total Bilirubin 0.7 AST 27 ALT 36 Alkaline Phosphatase 59 Total Protein 6.5 Albumin 3.6 Globulin 2.9 Albumin/Globulin Ratio 1.2 Intake & Output: Intake & Output 10/12/17 10/13/17 10/13/17 18:59 06:59 18:59 Intake Total 0 180 1240 Output Total 525 520 Balance -525 180 720 Intake: IV 1000 Right Antecubital 1000 Oral 0 180 240 Output: Urine 525 520 Urine, Voided 525 520 Other: Voiding Method Toilet # Voids Urine, Voided 0 # Bowel Movements 0 0 0 Vital Signs: Vital Signs - 24 hr 10/12/17 10/12/17 10/12/17 14:00 15:37 15:52 Temperature 99 F 99.0 F 99.0 F Pulse Rate 80 66 65 Respiratory 18 16 16 Rate Blood Pressure 122/77 141/85 140/84 O2 Sat by Pulse 98 98 98 Oximetry 10/12/17 10/12/17 10/12/17 16:07 16:22 16:37 Temperature 99.0 F 99.0 F 99.0 F Pulse Rate 65 62 62 Respiratory 16 16 15 Rate Blood Pressure 139/82 140/78 135/82 O2 Sat by Pulse 98 98 98 Oximetry 10/12/17 10/12/17 10/12/17 16:52 17:10 17:40 Temperature 99.0 F 99.0 F 99.0 F Pulse Rate 68 71 73 Respiratory 16 16 16 Rate Blood Pressure 133/75 127/75 135/77 O2 Sat by Pulse 98 98 98 Oximetry 10/12/17 10/12/17 18:05 20:44 Temperature 99.0 F Pulse Rate 71 85 Respiratory 16 18 Rate Blood Pressure 121/76 146/85 O2 Sat by Pulse 98 97 Oximetry
[2017-10-13 10:08] VITALS: BP 123/77; PULSE 92
[2017-10-13 10:48] VITALS: RESP 20; TEMP 98.2
--- NOTE | 2017-10-13 11:05 | CP.PCM.DIS ---
<Kayley Valdovinos - Last Filed: 10/14/17 13:35> Provider - Provider Date of Admission: 10/12/17 15:45 Attending physician: Eladio Beaulieu MD Primary care physician: Jane Bynum DO Consults: Liberty Mary Time Spent in preparation of Discharge (in minutes): 35 Diagnosis - Discharge Diagnosis (1) Cystostomy care Status: Acute (2) UTI (urinary tract infection) Status: Acute (3) Urinary retention Status: Acute Hospital Course - Lab Results Lab Results: Most Recent Lab Values WBC 8.1 10^3/ul (4.5-11.0) 10/13/17 05:30 RBC 3.56 10^6/uL (3.5-6.1) 10/13/17 05:30 Hgb 11.1 g/dL (14.0-18.0) L 10/13/17 05:30 Hct 33.3 % (42.0-52.0) L 10/13/17 05:30 MCV 93.5 fl (80.0-105.0) 10/13/17 05:30 MCH 31.2 pg (25.0-35.0) 10/13/17 05:30 MCHC 33.3 g/dl (31.0-37.0) 10/13/17 05:30 RDW 12.8 % (11.5-14.5) 10/13/17 05:30 Plt Count 211 10^3/uL (120.0-450.0) 10/13/17 05:30 MPV 9.2 fl (7.0-11.0) 10/13/17 05:30 Gran % 83.9 % (50.0-68.0) H 10/13/17 05:30 Lymph % (Auto) 7.9 % (22.0-35.0) L 10/13/17 05:30 [place] % (Auto) 7.6 % (1.0-6.0) H 10/13/17 05:30 Eos % (Auto) 0.4 % (1.5-5.0) L 10/13/17 05:30 Baso % (Auto) 0.2 % (0.0-3.0) 10/13/17 05:30 Gran # 6.80 (1.4-6.5) H 10/13/17 05:30 Lymph # (Auto) 0.6 (1.2-3.4) L 10/13/17 05:30 [place] # (Auto) 0.6 (0.1-0.6) 10/13/17 05:30 Eos # (Auto) 0.0 (0.0-0.7) 10/13/17 05:30 Baso # (Auto) 0.02 K/mm3 (0.0-2.0) 10/13/17 05:30 PT 12.7 SECONDS (9.4-12.5) H 10/12/17 05:45 INR 1.10 (0.93-1.08) H 10/12/17 05:45 APTT 31.0 Seconds (25.1-36.5) 10/12/17 05:45 Sodium 135 mmol/L (132-148) 10/13/17 05:30 Potassium 3.7 mmol/L (3.6-5.0) 10/13/17 05:30 Chloride 96 mmol/L (98-107) L 10/13/17 05:30 Carbon Dioxide 28 mmol/L (21-33) 10/13/17 05:30 Anion Gap 14 (10-20) 10/13/17 05:30 BUN 12 mg/dL (7-21) 10/13/17 05:30 Creatinine 0.8 mg/dl (0.8-1.5) 10/13/17 05:30 Est GFR ( Amer) > 60 10/13/17 05:30 Est GFR (Non-Af Amer) > 60 10/13/17 05:30 POC Glucose (mg/dL) 115 mg/dL (65-110) H 10/13/17 07:55 Random Glucose 113 mg/dL (70-110) H 10/13/17 05:30 Hemoglobin A1c 6.6 % (4.2-6.5) H 10/12/17 04:00 Calcium 9.2 mg/dL (8.4-10.5) 10/13/17 05:30 Total Bilirubin 0.7 mg/dL (0.2-1.3) 10/13/17 05:30 AST 27 U/L (17-59) 10/13/17 05:30 ALT 36 U/L (7-56) 10/13/17 05:30 Alkaline Phosphatase 59 U/L (38-126) 10/13/17 05:30 Total Protein 6.5 g/dL (5.8-8.3) 10/13/17 05:30 Albumin 3.6 g/dL (3.0-4.8) 10/13/17 05:30 Globulin 2.9 gm/dL 10/13/17 05:30 Albumin/Globulin Ratio 1.2 (1.1-1.8) 10/13/17 05:30 Urine Color Yellow (YELLOW) 10/12/17 02:45 Urine Appearance Sl cloudy (CLEAR) 10/12/17 02:45 Urine pH 6.5 (4.7-8.0) 10/12/17 02:45 Ur Specific [place] 1.010 (1.005-1.035) 10/12/17 02:45 Urine Protein Trace mg/dL (<30 mg/dL) H 10/12/17 02:45 Urine Glucose (UA) Negative mg/dL (NEGATIVE) 10/12/17 02:45 Urine Ketones Negative mg/dL (NEGATIVE) 10/12/17 02:45 Urine Blood Negative (NEGATIVE) 10/12/17 02:45 Urine Nitrate Negative (NEGATIVE) 10/12/17 02:45 Urine Bilirubin Negative (NEGATIVE) 10/12/17 02:45 Urine Urobilinogen 0.2 E.U./dL (<1 E.U./dL) 10/12/17 02:45 Ur Leukocyte Esterase Moderate Tomás/uL (NEGATIVE) H 10/12/17 02:45 Urine RBC 0 - 2 /hpf (0-2) 10/12/17 02:45 Urine WBC 15 - 20 /hpf (0-6) 10/12/17 02:45 Ur Epithelial Cells 0 - 2 /hpf (0-5) 10/12/17 02:45 Urine Bacteria Mod (NEG) 10/12/17 02:45 - Hospital Course Hospital Course: 72 year old [place]ian-Speaking male with a PMHx of prostate CA (currently undergoing radiation therapy), Hypothyroidism, Pre-diabetes, and hypertension who presents for urinary discomfort that started the day of arrival. Pt also states that he has trouble urinating, with weak stream. Dickinson catheter inserted in ED, with no urine return. Upon reomval of dickinson, pt had blood. Pt's UA positive for infection, treated with Ceftriaxone. Urology (Dr Mary) consulted , pt went for cystotomy with evacuation of clots, fulgaration, found to have urethral strictures, suprapubic dickinson cath placed, to be continued for 6 weeks. Pt to follow up with Dr Mary in 1 week. Pt discharged on Ciprofloxacin for UTI. Discharge Exam - Head Exam Head Exam: ATRAUMATIC, NORMAL INSPECTION, NORMOCEPHALIC - Eye Exam Eye Exam: EOMI, PERRL. absent: Conjunctival injection, Nystagmus, Scleral icterus Pupil Exam: NORMAL ACCOMODATION, PERRL. absent: Fixed, Irregular, Unequal - ENT Exam ENT Exam: Mucous Membranes Moist - Neck Exam Neck exam: Full Rom - Respiratory Exam Respiratory Exam: Clear to PA & Lateral, NORMAL BREATHING PATTERN, UNREMARKABLE. absent: Accessory Muscle Use, Chest Wall Tenderness, Rhonchi, Wheezes, Respiratory Distress - Cardiovascular Exam Cardiovascular Exam: RRR, +S1, +S2. absent: Systolic Murmur - GI/Abdominal Exam GI & Abdominal Exam: Normal Bowel Sounds, Soft. absent: Distended, Firm, Guarding, Mass, Rigid, Tenderness Additional comments: + suprapubic cath in place, no surrounding erythema, leaking noted. - Back Exam Back exam: NORMAL INSPECTION - Neurological Exam Neurological exam: Alert, Oriented x3 - Psychiatric Exam Psychiatric exam: Normal Affect, Normal Mood - Skin Skin Exam: Dry, Normal Color, Warm Discharge Plan - Discharge Medications Prescriptions: Ciprofloxacin [Cipro] 500 mg PO BID 10 Days tab - Follow Up Plan Condition: STABLE Disposition: HOME/ ROUTINE Instructions: How to Care for Your Suprapubic Urinary Catheter, Bleeding After Surgery, Urinary Tract Infection in Women (DC), Urinary Tract Infection in Men ( DC), Dysuria (GEN) Additional Instructions: - You will have the suprapubic catheter for 6 weeks at home. F/u with Dr Mary on Monday. - F/u with Dr Bynum in 1 week. - Take Cirpofloxacin for 10 days for your urinary infection. - Return to ER if any concerns. Referrals: Jane Bynum DO [Primary Care Provider] - Ad Mary MD [Staff Provider] - <Irfan,Mohammad - Last Filed: 10/15/17 10:36> Provider - Provider Date of Admission: 10/12/17 15:45 Attending physician: Eladio Beaulieu MD Primary care physician: Jane Bynum [facility] Course - Lab Results Lab Results: Most Recent Lab Values WBC 8.1 10^3/ul (4.5-11.0) 10/13/17 05:30 RBC 3.56 10^6/uL (3.5-6.1) 10/13/17 05:30 Hgb 11.1 g/dL (14.0-18.0) L 10/13/17 05:30 Hct 33.3 % (42.0-52.0) L 10/13/17 05:30 MCV 93.5 fl (80.0-105.0) 10/13/17 05:30 MCH 31.2 pg (25.0-35.0) 10/13/17 05:30 MCHC 33.3 g/dl (31.0-37.0) 10/13/17 05:30 RDW 12.8 % (11.5-14.5) 10/13/17 05:30 Plt Count 211 10^3/uL (120.0-450.0) 10/13/17 05:30 MPV 9.2 fl (7.0-11.0) 10/13/17 05:30 Gran % 83.9 % (50.0-68.0) H 10/13/17 05:30 Lymph % (Auto) 7.9 % (22.0-35.0) L 10/13/17 05:30 [place] % (Auto) 7.6 % (1.0-6.0) H 10/13/17 05:30 Eos % (Auto) 0.4 % (1.5-5.0) L 10/13/17 05:30 Baso % (Auto) 0.2 % (0.0-3.0) 10/13/17 05:30 Gran # 6.80 (1.4-6.5) H 10/13/17 05:30 Lymph # (Auto) 0.6 (1.2-3.4) L 10/13/17 05:30 [place] # (Auto) 0.6 (0.1-0.6) 10/13/17 05:30 Eos # (Auto) 0.0 (0.0-0.7) 10/13/17 05:30 Baso # (Auto) 0.02 K/mm3 (0.0-2.0) 10/13/17 05:30 PT 12.7 SECONDS (9.4-12.5) H 10/12/17 05:45 INR 1.10 (0.93-1.08) H 10/12/17 05:45 APTT 31.0 Seconds (25.1-36.5) 10/12/17 05:45 Sodium 135 mmol/L (132-148) 10/13/17 05:30 Potassium 3.7 mmol/L (3.6-5.0) 10/13/17 05:30 Chloride 96 mmol/L (98-107) L 10/13/17 05:30 Carbon Dioxide 28 mmol/L (21-33) 10/13/17 05:30 Anion Gap 14 (10-20) 10/13/17 05:30 BUN 12 mg/dL (7-21) 10/13/17 05:30 Creatinine 0.8 mg/dl (0.8-1.5) 10/13/17 05:30 Est GFR ( Amer) > 60 10/13/17 05:30 Est GFR (Non-Af Amer) > 60 10/13/17 05:30 POC Glucose (mg/dL) 114 mg/dL (65-110) H 10/13/17 11:15 Random Glucose 113 mg/dL (70-110) H 10/13/17 05:30 Hemoglobin A1c 6.6 % (4.2-6.5) H 10/12/17 04:00 Calcium 9.2 mg/dL (8.4-10.5) 10/13/17 05:30 Total Bilirubin 0.7 mg/dL (0.2-1.3) 10/13/17 05:30 AST 27 U/L (17-59) 10/13/17 05:30 ALT 36 U/L (7-56) 10/13/17 05:30 Alkaline Phosphatase 59 U/L (38-126) 10/13/17 05:30 Total Protein 6.5 g/dL (5.8-8.3) 10/13/17 05:30 Albumin 3.6 g/dL (3.0-4.8) 10/13/17 05:30 Globulin 2.9 gm/dL 10/13/17 05:30 Albumin/Globulin Ratio 1.2 (1.1-1.8) 10/13/17 05:30 Urine Color Yellow (YELLOW) 10/12/17 02:45 Urine Appearance Sl cloudy (CLEAR) 10/12/17 02:45 Urine pH 6.5 (4.7-8.0) 10/12/17 02:45 Ur Specific [place] 1.010 (1.005-1.035) 10/12/17 02:45 Urine Protein Trace mg/dL (<30 mg/dL) H 10/12/17 02:45 Urine Glucose (UA) Negative mg/dL (NEGATIVE) 10/12/17 02:45 Urine Ketones Negative mg/dL (NEGATIVE) 10/12/17 02:45 Urine Blood Negative (NEGATIVE) 10/12/17 02:45 Urine Nitrate Negative (NEGATIVE) 10/12/17 02:45 Urine Bilirubin Negative (NEGATIVE) 10/12/17 02:45 Urine Urobilinogen 0.2 E.U./dL (<1 E.U./dL) 10/12/17 02:45 Ur Leukocyte Esterase Moderate Tomás/uL (NEGATIVE) H 10/12/17 02:45 Urine RBC 0 - 2 /hpf (0-2) 10/12/17 02:45 Urine WBC 15 - 20 /hpf (0-6) 10/12/17 02:45 Ur Epithelial Cells 0 - 2 /hpf (0-5) 10/12/17 02:45 Urine Bacteria Mod (NEG) 10/12/17 02:45 Attending/Attestation - Attestation I have personally seen and examined this patient.: Yes I have fully participated in the care of the patient.: Yes I have reviewed all pertinent clinical information, including history, physical exam and plan: Yes Notes (Text): 10/15/17 10:33 Medical record note made by the resident after discussion with my direction and input after the patient was personally seen and examined by me. I have reviewed the chart and agree that the record accurately reflects by personal performance of the history, physical exam, data review, and medical decision-making, in the course for the patient. I have also personally directed the plan of care. 72 yrs old male with PMH of CA Prostate was admitted with dysurea, developed hematuria in ER while Folley catheter was placed in ER. Patient is SP cystoscopy and supra pubic catheter was placed as he was found to have urethral stricture.His hematuria is resolved.Hemoglobin is stable. He will be discharged home on oral antibiotics for UTI,He will follow up with PMD and Urology. Management plan was discussed in detail with patient. Education was provided.
--- NOTE | 2017-10-18 11:37 | OP ---
PROCEDURE DATE: 10/12/2017 PREOPERATIVE DIAGNOSES: Gross hematuria, urinary retention and prostate cancer. POSTOPERATIVE DIAGNOSES: Gross hematuria, urinary retention and prostate cancer, severe urethral stricture disease (to the point that we cannot even make an incision). PROCEDURE: Cystoscopy, internal optical urethrotomy attempted, insertion of a cystostomy tube, suprapubic cystotomy tube, punch cystotomy and a cystogram. ESTIMATED BLOOD LOSS: Less than 10 mL. COMPLICATIONS: There were no complications. INDICATIONS: See history and physical for further details. A very pleasant gentleman, who is admitted to the hospital with gross hematuria, urinary retention and underlying prostate cancer. In fact consultation, I had actually received a phone call from the radiation oncologist regarding this patient who was aware that he was . See the consult note. Then, we spoke to the doctor staff here. They had apparently tried to insert a Goff catheter. He had gross hematuria. UROLOGY OPERATIVE FINDINGS: Normal phallus. Normal meatus. The urethra itself and the pendulous urethra are strictured and scored down. It is a pinpoint stricture which I cannot get. I initially was able to get a 4-Tuval[place] Ellis tip pass that. But was not able to get the ureteral catheter all the way to the bladder the second stricture. After I made my initial cut and was able to get pass the first stricture and the pendulous urethra, there was more stricture and I cannot get the catheter pass through. I had x-ray available during the fluoroscopic view, but I cannot get anything into the urinary bladder. After multiple gentle attempts, I still could not. So, we ended up doing a punch cystotomy. The bladder itself was distended. I could do that by fluoroscopic imaging. The procedure was done with a fluoroscope. At the termination of the procedure, we have a working indwelling cystostomy tube. Draining well, 12-Tuvaluan. There was no complication. DESCRIPTION OF PROCEDURE: After obtaining informed consent from the patient, placing the patient on the table, the patient was placed in lithotomy position, routine monitors were placed, time-out was called to confirm the patient, positioning etc. After doing such, the patient was . Antibiotic prophylaxis. We introduced a cystoscope by the urethra. We used a 22-Tu[place]uan scope. once we introduced the cystoscope. The meatus was normal. We then noted the presence of a urethral stricture that is pinpoint. Multiple pictures were taken at this point. We then continued. I converted over to an internal optical urethrotomy setup. I used a 4-Tu[place] Allis tip catheter to go past the stricture. This was all done with the camera. However, I did not feel like the urethral catheter went all the way down to the bladder. I made an initial cut with a cold knife. But we cannot get further than that initial cut. There was an another stricture, at least 2 more strictures. But I just cannot negotiate pass them. There was some bleeding noted. I have confirmed as an emergency procedure. At this point, with bleeding and other complications, so at this point with the bladder still distended, I converted over to a cystostomy tube insertion. Meaning, several techniques I tried anyway did not go in. I tried a few . There were multiple available. I could see that they did not feel like they went in. But anyway the first follow available happens to be a 14-Tuvaluan, not an 8 or 10. Either I could not get the ureteral catheters and I could get the spiral tip in. At this point, we converted to be cystostomy tube. The patient was reprepped in sterile fashion. We used a needle, used fluoroscopic imaging, identified just above the pubic bone and made a small incision. We drained clear urine. We have done with a 12-Tuval[place] cystostomy tube. We confirmed the positioning under fluoroscopic imaging with oblique films as well. At this point, we secured the cystostomy tube in good location. Overall, the patient tolerated the procedure well without complication. Paxton Mary MD
--- NOTE | 2017-10-18 14:15 | PN ---
DATE: UROLOGY POSTOP NOTE See history and physical, see consultation, see operative note. This is a postop note. Label as such. The patient has prostate cancer, urethral stricture disease, gross hematuria and urinary retention. He is currently in the postop period. He remains stable. Vital signs are within normal limits. The cystostomy tube is draining well. PLAN: The urology plan is maintenance of the cystostomy tube and I will discuss further plan. As mentioned as note during the procedure itself because of the bleeding and my concern around the penis, we wrapped the penis with a Kerlix and an Ariel wrap. There appears to be the appropriate amount of swelling all within normal limits. Patient remains stable. We will continue to monitor closely. Paxton Mary MD
--- NOTE | 2017-10-18 18:14 | CON ---
DATE: UROLOGY CONSULTATION REASON FOR CONSULTATION: Urinary retention, prostate cancer, hematuria. Mr. Omari Li is a very pleasant gentleman, actually prior to today, I have known the patient as Omari Mackay. He has been coming to my office. He is very pleasant, but extremely noncompliant gentleman. He has underlying prostate cancer and he is getting radiation. He was admitted to the hospital. They tried inserting a Goff catheter via the urethra and were not successful, he came in with urinary retention. The Urology is consulted for the hematuria and insertion of Goff catheter, see the plan below and the addendum listed below. PAST MEDICAL AND SURGICAL HISTORY: Listed in the chart. REVIEW OF SYSTEMS: As listed above, otherwise noncontributory. As mentioned, he is currently undergoing radiation treatments. PHYSICAL EXAMINATION: GENERAL: Well-nourished male, he is currently resting comfortably. VITAL SIGNS: Noted within normal limits. RECTAL: Deferred for now. DIAGNOSES: 1. Urinary retention and prostate cancer. 2. Gross hematuria. PLAN: As follows. The patient has had multiple attempts for insertion of Goff catheter. We . We are going to bring the patient today to the operating room for insertion of Goff catheter and for evaluation of gross hematuria. So, the plan is as follows: 1. We are going to the OR now. follow up. ADDENDUM: See the operative report. In fact, the patient had a urethral stricture and with even cystoscope, we were not able to gain access. So, the patient now currently has a cystoscopy tube and the management will be based on cystoscopy tube. See further notes to follow. Paxton Mary MD
== END 2017-10-13 13:05 | disposition home health service (06) | DRG 321 ==
LOC: ED 02:01 → ERH 04:01 → 3RNO 04:37 → OBSVTOIN 15:45
PROVIDERS: ADMIT Internal Medicine; ATTEND Internal Medicine
PROC: 0T9B70Z Drainage of Bladder with Drainage Device, Via Natural or Artificial Opening (ICD-10-PCS; 2017-10-12)
PROC: 0T9B40Z Drainage of Bladder with Drainage Device, Percutaneous Endoscopic Approach (ICD-10-PCS; principal; 2017-10-12 13:00)
DX: N39.0 Urinary tract infection, site not specified (principal); R31.0 Gross hematuria; E11.9 Type 2 diabetes mellitus without complications; E03.9 Hypothyroidism, unspecified; N35.9 Urethral stricture, unspecified; R39.12 Poor urinary stream; I10 Essential (primary) hypertension; Z79.82 Long term (current) use of aspirin; Z79.84 Long term (current) use of oral hypoglycemic drugs; Z85.46 Personal history of malignant neoplasm of prostate